=== PATIENT | female | born 1995 | race American Indian/Alaskan Native ===

== ENCOUNTER 2021-06-11 12:08 | Emergency (ER) | payer SELFPAY ==
[2021-06-11] MEDS ORDERED: KETOROLAC 60 MG/2 ML INJ IM ONE (13:55)
[2021-06-11] MEDS ORDERED: ONDANSETRON 4 MG ODT TAB PO ONE (13:55)
[2021-06-11 14:32] LABS: Basophils % (Auto) 0.2 % (0.0-1.8); Eosinophils % (Auto) 0.1 % (0.0-4.3); Hematocrit 37.6 % (30.3-42.9); Hemoglobin 11.9 gm/dl (10.1-14.3); Lymphocytes % (Auto) 8.1 % (13.4-35.0); Mean Corpuscular HGB Conc 32 % (30-34); Mean Corpuscular Volume 94 fl (79-97); Monocytes # (Auto) 0.5 K/mm3 (0.0-0.8); Monocytes % (Auto) 4.3 % (0.0-7.3); Platelet Count 198 K/mm3 (140-440); Red Blood Count 3.99 M/mm3 (3.65-5.03)
--- NOTE | 2021-06-11 14:39 | Emergency Department Report ---
ED Abdominal Pain HPI - General Chief Complaint: Abdominal Pain Stated Complaint: CHEST AND ABD PAIN Time Seen by Provider: 06/11/21 13:38 Source: patient Mode of arrival: Ambulatory Limitations: No Limitations - History of Present Illness Initial Comments: Patient is a 25-year-old female presents emergency room complaints of lower abdominal pain that began this morning. She states that her menstrual cycle just began yesterday. She reports that she has very painful menstrual cycle secondary to endometriosis. She states that she was previously on Depo-Provera but due to irregular bleeding she stopped taking the injections and states that she is not currently on any hormone therapy for the endometriosis. She has associated nausea and vomiting. She denies any fever, diarrhea, dysuria, abnormal vaginal discharge. She states that she is also been having some constipation but is able to pass gas. No allergies to medications. Severity scale (0 -10): 9 - Related Data Previous Rx's Medication Instructions Recorded Last Taken Type Acetaminophen/Codeine [Tylenol 1 tab PO Q6H PRN #10 tab 06/11/21 Unknown Rx /Codeine # 3 tab] Naproxen 375 mg PO BID PRN #14 tablet 06/11/21 Unknown Rx Ondansetron [Zofran Odt] 4 mg PO Q8HR PRN #12 tab.rapdis 06/11/21 Unknown Rx cephALEXin [Keflex] 500 mg PO BID 7 Days #14 cap 06/11/21 Unknown Rx Allergies Allergy/AdvReac Type Severity Reaction Status Date / Time No Known Allergies Allergy Verified 06/11/21 13:30 ED Review of Systems ROS: Stated complaint: CHEST AND ABD PAIN Other details as noted in HPI Comment: All other systems reviewed and negative ED Past Medical Hx - Past Medical History Previous Medical History?: Yes Additional medical history: toxic shock. endometriosis - Medications Home Medications: Home Medications Medication Instructions Recorded Confirmed Last Taken Type Acetaminophen/Codeine [Tylenol 1 tab PO Q6H PRN #10 tab 06/11/21 Unknown Rx /Codeine # 3 tab] Naproxen 375 mg PO BID PRN #14 tablet 06/11/21 Unknown Rx Ondansetron [Zofran Odt] 4 mg PO Q8HR PRN #12 tab.rapdis 06/11/21 Unknown Rx cephALEXin [Keflex] 500 mg PO BID 7 Days #14 cap 06/11/21 Unknown Rx ED Physical Exam - General Limitations: No Limitations General appearance: alert, in no apparent distress - Head Head exam: Present: atraumatic, normocephalic - Eye Eye exam: Present: normal appearance - ENT ENT exam: Present: mucous membranes moist - Respiratory Respiratory exam: Present: normal lung sounds bilaterally. Absent: respiratory distress, wheezes, rales, rhonchi, stridor, chest wall tenderness, accessory muscle use, decreased breath sounds, prolonged expiratory - Cardiovascular Cardiovascular Exam: Present: regular rate, normal rhythm, normal heart sounds. Absent: systolic murmur, diastolic murmur, rubs, gallop - GI/Abdominal GI/Abdominal exam: Present: soft, tenderness (suprapubic), normal bowel sounds. Absent: distended, guarding, rebound, rigid - Neurological Exam Neurological exam: Present: alert, oriented X3 - Psychiatric Psychiatric exam: Present: normal affect, normal mood - Skin Skin exam: Present: warm, dry, intact ED Course Vital Signs 06/11/21 06/11/21 06/11/21 13:25 14:10 16:31 Temperature 98.6 F Pulse Rate 91 H Respiratory 16 18 18 Rate Blood Pressure 128/85 Blood Pressure [Right] O2 Sat by Pulse 100 Oximetry 06/11/21 17:07 Temperature Pulse Rate 68 Respiratory 15 Rate Blood Pressure Blood Pressure 128/64 [Right] O2 Sat by Pulse 99 Oximetry ED Medical Decision Making - Lab Data Result diagrams: 06/11/21 14:11 06/11/21 14:11 Lab Results 06/11/21 06/11/21 06/11/21 Range/Units 14:11 14:11 14:11 WBC 12.5 H (4.5-11.0) K/mm3 RBC 3.99 (3.65-5.03) M/mm3 Hgb 11.9 (10.1-14.3) gm/dl Hct 37.6 (30.3-42.9) % MCV 94 (79-97) fl MCH 30 (28-32) pg MCHC 32 (30-34) % RDW 13.0 L (13.2-15.2) % Plt Count 198 (140-440) K/mm3 Lymph % (Auto) 8.1 L (13.4-35.0) % [place] % (Auto) 4.3 (0.0-7.3) % Eos % (Auto) 0.1 (0.0-4.3) % Baso % (Auto) 0.2 (0.0-1.8) % Lymph # (Auto) 1.0 L (1.2-5.4) K/mm3 [place] # (Auto) 0.5 (0.0-0.8) K/mm3 Eos # (Auto) 0.0 (0.0-0.4) K/mm3 Baso # (Auto) 0.0 (0.0-0.1) K/mm3 Seg Neutrophils % 87.3 H (40.0-70.0) % Seg Neutrophils # 10.9 H (1.8-7.7) K/mm3 Sodium 136 L (137-145) mmol/L Potassium 4.0 (3.6-5.0) mmol/L Chloride 100.5 (98-107) mmol/L Carbon Dioxide 24 (22-30) mmol/L Anion Gap 16 mmol/L BUN 7 (7-17) mg/dL Creatinine 0.5 L (0.6-1.2) mg/dL Estimated GFR > 60 ml/min BUN/Creatinine Ratio 14 % Glucose 92 (65-100) mg/dL Calcium 9.1 (8.4-10.2) mg/dL Total Bilirubin 2.10 H (0.1-1.2) mg/dL AST 11 (5-40) units/L ALT 12 (7-56) units/L Alkaline Phosphatase 70 (35-129) units/L Total Protein 7.4 (6.3-8.2) g/dL Albumin 4.6 (3.9-5) g/dL Albumin/Globulin Ratio 1.6 % Lipase 8 L (13-60) units/L HCG, Quant < 2 (0-4) mIU/mL Urine Color (Yellow) Urine Turbidity (Clear) Urine pH (5.0-7.0) Ur Specific [place] (1.003-1.030) Urine Protein (Negative) mg/dL Urine Glucose (UA) (Negative) mg/dL Urine Ketones (Negative) mg/dL Urine Blood (Negative) Urine Nitrite (Negative) Urine Bilirubin (Negative) Urine Urobilinogen (<2.0) mg/dL Ur Leukocyte Esterase (Negative) Urine WBC (Auto) (0.0-6.0) /HPF Urine RBC (Auto) (0.0-6.0) /HPF U Epithel Cells (Auto) (0-13.0) /HPF Urine Bacteria (Auto) (Negative) /HPF Urine Mucus /HPF 06/11/21 Range/Units Unknown WBC (4.5-11.0) K/mm3 RBC (3.65-5.03) M/mm3 Hgb (10.1-14.3) gm/dl Hct (30.3-42.9) % MCV (79-97) fl MCH (28-32) pg MCHC (30-34) % RDW (13.2-15.2) % Plt Count (140-440) K/mm3 Lymph % (Auto) (13.4-35.0) % [place] % (Auto) (0.0-7.3) % Eos % (Auto) (0.0-4.3) % Baso % (Auto) (0.0-1.8) % Lymph # (Auto) (1.2-5.4) K/mm3 [place] # (Auto) (0.0-0.8) K/mm3 Eos # (Auto) (0.0-0.4) K/mm3 Baso # (Auto) (0.0-0.1) K/mm3 Seg Neutrophils % (40.0-70.0) % Seg Neutrophils # (1.8-7.7) K/mm3 Sodium (137-145) mmol/L Potassium (3.6-5.0) mmol/L Chloride (98-107) mmol/L Carbon Dioxide (22-30) mmol/L Anion Gap mmol/L BUN (7-17) mg/dL Creatinine (0.6-1.2) mg/dL Estimated GFR ml/min BUN/Creatinine Ratio % Glucose (65-100) mg/dL Calcium (8.4-10.2) mg/dL Total Bilirubin (0.1-1.2) mg/dL AST (5-40) units/L ALT (7-56) units/L Alkaline Phosphatase (35-129) units/L Total Protein (6.3-8.2) g/dL Albumin (3.9-5) g/dL Albumin/Globulin Ratio % Lipase (13-60) units/L HCG, Quant (0-4) mIU/mL Urine Color Yellow (Yellow) Urine Turbidity Clear (Clear) Urine pH 6.0 (5.0-7.0) Ur Specific [place] 1.030 (1.003-1.030) Urine Protein 30 mg/dl (Negative) mg/dL Urine Glucose (UA) Neg (Negative) mg/dL Urine Ketones Neg (Negative) mg/dL Urine Blood Mod (Negative) Urine Nitrite Neg (Negative) Urine Bilirubin Neg (Negative) Urine Urobilinogen 2.0 (<2.0) mg/dL Ur Leukocyte Esterase Lg (Negative) Urine WBC (Auto) 52.0 H (0.0-6.0) /HPF Urine RBC (Auto) 55.0 (0.0-6.0) /HPF U Epithel Cells (Auto) 7.0 (0-13.0) /HPF Urine Bacteria (Auto) 1+ (Negative) /HPF Urine Mucus 3+ /HPF - Radiology Data Radiology results: report reviewed Ordering Physician: MAEVE TAMEZ Date of Service: 06/11/21 Procedure(s): XR abdomen 2V Accession Number(s): [id number] cc: MAEVE TAMEZ Fluoro Time In Minutes: ABDOMEN 2 VIEWS INDICATION / CLINICAL INFORMATION: constipation. COMPARISON: None available. FINDINGS: TUBES / LINES: None. BOWEL GAS PATTERN: No significant abnormality. FREE AIR / EXTRALUMINAL GAS: None seen. ADDITIONAL FINDINGS: No significant additional findings. CHEST: Visualized lung bases shows no significant abnormality. IMPRESSION: 1. No significant abnormality. Signer Name: Maria Christianson MD Signed: 06/11/2021 3:18 PM Workstation Name: [id number] Transcribed By: CARLOS Dictated By: MARIA CHRISTIANSON MD Electronically Authenticated By: MARIA CHRISTIANSON MD Signed Date/Time: 06/11/211517 DD/ 16 TD/TT: - Medical Decision Making Patient is a 25-year-old female presents emergency room complaints of lower abdominal pain that began this morning. She states that her menstrual cycle just began yesterday. She reports that she has very painful menstrual cycle secondary to endometriosis. She states that she was previously on Depo-Provera but due to irregular bleeding she stopped taking the injections and states that she is not currently on any hormone therapy for the endometriosis. She has associated nausea and vomiting. She denies any fever, diarrhea, dysuria, abnormal vaginal discharge. She states that she is also been having some constipation but is able to pass gas. No allergies to medications. Vitals are normal. On exam patient has suprapubic abdominal tenderness, no guarding, no rebound, no rigidity. Labs with mild leukocytosis, mildly elevated bilirubin but normal AST, ALT, alk phos. Patient has no upper abdominal pain. UA shows evidence of UTI. Patient given medications while in the emergency department with improvement of her symptoms and she was able to tolerate p.o. intake without difficulty. Discussed the importance of outpatient follow-up for reexamination. Discussed return precautions. advised patient Take medication as prescribed. Increase your fluid intake. Follow-up with SUSTAINABILITY COORDINATOR. Return to emergency room for any new or worsening symptoms. Critical care attestation.: If time is entered above; I have spent that time in minutes in the direct care of this critically ill patient, excluding procedure time. ED Disposition Clinical Impression: Dysmenorrhea UTI (urinary tract infection) Qualifiers: Urinary tract infection type: acute cystitis Hematuria presence: with hematuria Qualified Code(s): N30.01 - Acute cystitis with hematuria Abdominal pain Qualifiers: Abdominal location: lower abdomen, unspecified Qualified Code(s): R10.30 - Lower abdominal pain, unspecified Disposition: 01 HOME / SELF CARE / HOMELESS Is pt being admited?: No Does the pt Need Aspirin: No Condition: Stable Instructions: Urinary Tract Infection, Adult, [id number], Dysmenorrhea, [id number], Abdominal Pain (ED) Additional Instructions: Take medication as prescribed. Increase your fluid intake. Follow-up with SUSTAINABILITY COORDINATOR. Return to emergency room for any new or worsening symptoms. Prescriptions: cephALEXin [Keflex] 500 mg PO BID 7 Days #14 cap Naproxen 375 mg PO BID PRN #14 tablet PRN Reason: moderate pain Acetaminophen/Codeine [Tylenol /Codeine # 3 tab] 1 tab PO Q6H PRN #10 tab PRN Reason: severe pain Ondansetron [Zofran Odt] 4 mg PO Q8HR PRN #12 tab.rapdis PRN Reason: nausea/vomiting Referrals: PRIMARY CARE, [Primary Care Provider] - 3-5 Days TERESA SANCHEZ MD [Staff Physician] - 3-5 Days Time of Disposition: 16:55 Print Language: UPPER SORBIAN
[2021-06-11 14:50] LABS: Alanine Aminotransferase 12 units/L (7-56); Albumin 4.6 g/dL (3.9-5); BUN/Creatinine Ratio 14; Blood Urea Nitrogen 7 mg/dL (7-17); Calcium 9.1 mg/dL (8.4-10.2); Hemolysis Index 3
--- NOTE | 2021-06-11 15:22 | XRay Report ---
ABDOMEN 2 VIEWS INDICATION / CLINICAL INFORMATION: constipation. COMPARISON: None available. FINDINGS: TUBES / LINES: None. BOWEL GAS PATTERN: No significant abnormality. FREE AIR / EXTRALUMINAL GAS: None seen. ADDITIONAL FINDINGS: No significant additional findings. CHEST: Visualized lung bases shows no significant abnormality. IMPRESSION: 1. No significant abnormality. Signer Name: Mahesh Morton MD Signed: 06/11/2021 3:18 PM Workstation Name: [id number]
[2021-06-11] MEDS ORDERED: HYDROcodone/ACETAMINOPHEN 5-325 MG TAB PO ONE (15:34)
[2021-06-11 16:29] LABS: Bacteria,Urine 1+ /HPF (Negative); Bilirubin,Urine NEG (Negative); Blood,Urine MOD (Negative); Color,Urine Yellow (Yellow); Mucus,Urine 3+ /HPF
[2021-06-11 17:08] VITALS: BP 128/64
== END 2021-06-11 17:08 | disposition home or self-care (01) ==
LOC: ED 12:08
DX: N39.0 Urinary tract infection, site not specified (principal); N94.6 Dysmenorrhea, unspecified
CPT/HCPCS: 36415; 74019; 80053; 81001; 83690; 84702; 85025; 87086; 96372; 99284; J1885; J3490; Q0162